=== PATIENT | female | born 1985 | race Caucasian/White ===

== ENCOUNTER → 2016-12-04 | Outpatient (CLI) | payer BC, OTHER ==
[2016-12-04 14:58] LABS: CH 32.5; CHCM 34.7; HCT 32.2 % (34.0-46.0); HDW 2.87; HGB 10.8 gm/dL (11.4-16.0); MCH 31.8 pg (25.0-35.0); MCHC 33.7 g/dL (31.0-37.0); MCV 94.4 fL (80.0-100.0); Mean Platelet Volume 6.5; RBC 3.41 m/uL (3.80-5.40); RDW 13.6 % (11.5-15.5); WBC 14.1 k/uL (3.8-10.6)
--- NOTE | 2016-12-04 14:59 | US ---
EXAMINATION TYPE: US OB anatomy transabd DATE OF EXAM: 12/04/2016 2:20 PM COMPARISON: NONE HISTORY: LGA, no prior US with this TECHNIQUE: EXAM MEASUREMENTS: GESTATIONAL AGE / DATING Physician Established: not established Dates by LMP: (20 weeks/ 1 days) EDC: 04/22/2017 Dates by First Scan: this is first scan Dates by Current Scan: ( weeks/ 3 days) EDC: 04/13/2017 SURVEY IUP: Single PLACENTA: Anterior PREVIA: No previa SANTI: 12.4 cm Normal CERVICAL LENGTH (transabdominal: norm > 3.0cm): 3.6 cm BIOMETRY PRESENTATION: BPD: 5.0 cm 21 weeks / 1 days HC: 19.0 cm 21 weeks / 2 days AC: 15.8 cm 21 weeks / 0 days FL: 3.7 cm 21 weeks / 6 days ESTIMATED WEIGHT IN GRAMS: 414 grams ESTIMATED WEIGHT IN LBS/OZS: 0 lbs. 15 oz. WEIGHT PERCENTAGE BASED ON ESTABLISHED DATE: 96 % HC/AC: 1.2 FL/AC: 23% HEART RATE: 136 bpm RHYTHM: Normal ANATOMY SEEN (within normal limits): * Lateral Vent (< 1 cm)0.7 cm * Cisterna Magna (< 1.1 cm)0.5 cm * Nuchal Fold (< 0.6 cm)0.4 cm * Cerebellum (varies with age)2.2 cm Choroid Plexus (bilateral) Midline Falx Cavus Septi Pellucidi Four Chamber Heart Outflow tracts: LVOT/RVOT Stomach Situs Nose / Lips Diaphragm Kidneys (bilateral) Bladder Cord Insert Three Vessel Cord Longitudinal Spine Transverse Spine Arms (bilateral) Legs (bilateral) IMPRESSION: growth according to LMP dates.
[2016-12-04 15:05] LABS: Glucose 93 mg/dL (74-99); Non-African American GFR(MDRD) >60 (>60 ml/min/1.73 sqM)
[2016-12-04 15:35] LABS: Hepatitis B Surface Ag Index 0.05
[2016-12-04 18:52] LABS: Treponemal Ab Non-Reactive (Non-Reactive)
[2016-12-05 07:42] LABS: HIV-1/HIV-2 Ab Screen NONREAC (NON REAC)
== END | disposition home or self-care (01) ==
LOC: RADUSWWP 13:36
PROVIDERS: ATTEND Obstetrics & Gynecology
DX: O36.62X0 Maternal care for excessive fetal growth, second trimester, not applicable or unspecified (principal); O26.812 Pregnancy related exhaustion and fatigue, second trimester; Z3A.20 20 weeks gestation of pregnancy
CPT/HCPCS: 36415; 76811; 82565; 82947; 85027; 86762; 86777; 86778; 86780; 86850; 86900; 86901; 87340; 87389

== ENCOUNTER → 2017-01-06 | Outpatient (CLI) | payer BC, OTHER ==
[2017-01-06 10:58] LABS: CH 32.6; CHCM 34.2; HCT 34.2 % (34.0-46.0); HDW 3.04; HGB 11.2 gm/dL (11.4-16.0); MCH 31.5 pg (25.0-35.0); MCHC 32.8 g/dL (31.0-37.0); MCV 96.1 fL (80.0-100.0); Mean Platelet Volume 7.7; RBC 3.56 m/uL (3.80-5.40); RDW 13.7 % (11.5-15.5); WBC 14.7 k/uL (3.8-10.6)
== END | disposition home or self-care (01) ==
LOC: LABWHC1 09:34
PROVIDERS: ATTEND Obstetrics & Gynecology
DX: Z34.82 Encounter for supervision of other normal pregnancy, second trimester (principal); Z3A.00 Weeks of gestation of pregnancy not specified
CPT/HCPCS: 36415; 82950; 85027

== ENCOUNTER → 2017-01-13 | Outpatient (CLI) | payer BC, OTHER ==
[2017-01-13 11:45] LABS: Glucose 3 Hour, Gest 128 mg/dL
== END | disposition home or self-care (01) ==
LOC: LABWHC1 07:42
PROVIDERS: ATTEND Obstetrics & Gynecology
DX: O99.810 Abnormal glucose complicating pregnancy (principal); Z3A.00 Weeks of gestation of pregnancy not specified
CPT/HCPCS: 36415; 82951; 82952

== ENCOUNTER 2017-03-30 07:20 | Inpatient (IN) | payer BC, OTHER ==
[2017-03-30] MEDS ORDERED: TERBUTALINE 1 MG/ML VIAL SQ PRN (09:22)
[2017-03-30] MEDS ORDERED: OXYTOCIN 10 UNIT/ML 1 ML VIAL IM PRN (09:22)
[2017-03-30] MEDS ORDERED: LIDOCAINE 1% (PF) 10 MG/ML (30 ML SDV) SQ PRN (09:22)
[2017-03-30] MEDS ORDERED: METHYLERGONOVINE 0.2 MG/ML 1 ML AMP IM PRN (09:22)
[2017-03-30] MEDS ORDERED: CARBOPROST TROMETHAMINE 250 MCG/ML 1 ML AMP IM PRN (09:22)
[2017-03-30] MEDS ORDERED: OXYTOCIN 20 UNITS/1000 ML NS 1,000 ML IV SCH ×2 (09:30→19:00)
[2017-03-30] MEDS: LACTATED RINGERS 1,000 ML IV SCH ×2 (09:40→11:29)
[2017-03-30 10:05] VITALS: BMI 32.4
[2017-03-30 10:16] LABS: Basophils % (A) 0 %; CH 32.1; CHCM 35.3; Eosinophils # (A) 0.1 k/uL (0-0.7); Eosinophils % (A) 1 %; HCT 36.2 % (34.0-46.0); HDW 3.35; HGB 12.3 gm/dL (11.4-16.0); Luc # (Auto) 0.22; Luc % (Auto) 2; Lymphocytes # (A) 2.1 k/uL (1.0-4.8); Lymphocytes % (A) 16 %; MCH 31.3 pg (25.0-35.0); MCHC 34.1 g/dL (31.0-37.0); MCV 91.7 fL (80.0-100.0); Mean Platelet Volume 7.1; Monocytes # (A) 0.6 k/uL (0-1.0); Monocytes % (A) 4 %; Neutrophils # (A) 10.5 k/uL (1.3-7.7); Neutrophils % (A) 78 %; RBC 3.95 m/uL (3.80-5.40); RDW 13.9 % (11.5-15.5); WBC 13.5 k/uL (3.8-10.6); WBC (Perox) 13.83
[2017-03-30] MEDS ORDERED: SODIUM CHLORIDE 0.9% 100 ML BAG ONE (11:11)
[2017-03-30] MEDS ORDERED: fentaNYL (PF) 50 MCG/ML 5 ML AMP ONE (11:11)
[2017-03-30] MEDS ORDERED: BUPIVACAINE (PF) 0.25% 30 ML VIAL ONE (11:11)
[2017-03-30] MEDS ORDERED: BUPIVACAINE (PF) 0.25% 25 ML, fentaNYL (PF) 200 MCG in SODIUM CHLORIDE 0.9% 71 ML EPIDURAL ONE (11:24)
--- NOTE | 2017-03-30 12:23 | P.HPOB ---
History of Present Illness H&P Date: 03/30/17 Chief Complaint: Impression term: Active labor Chantal is a 31-year-old at 37 weeks 2 days gestation who arrives in active labor. She's making cervical change initially that it dilated to 3 and 4 she is now 5 cm 70% effaced -3 station. Artificial rupture membranes was performed and clear fluid is noted. There been some issues with heart tones. Initially while we are observing her there was a deceleration during an extended contraction down into the 80s from baseline of 125. It did resolve within 2 minutes. Falling her epidural there was again a deceleration but also has resolved within 2 minutes of the deceleration. heart tones were otherwise reassuring. We have not started Pitocin the Pitocin augmentation of labor may occur. Again she is doing an epidural for analgesia. Precis course otherwise was generally unremarkable. She does have a history of HSV for which she has been on antiviral. No lesions are noted that are consistent with HSV she has had no prodromal symptoms either. She does have a approximate 1 cm what appears to be ingrown hair/abscess on the mons squeezing it did produce a small amount of beige pus. Pertinent labs do include A+ blood type, Rh antibody negative, rubella nonimmune, hepatitis B surface antigen and HIV were negative. GBS was also negative. On physical exam vital signs are stable she is afebrile. Heart is regular, lungs are clear, extremities without pain. Abdomen is soft gravid uterus. Assessment intrauterine at term. Plan expect spontaneous vaginal delivery. Past Medical History Past Medical History: No Reported History History of Any Multi-Drug Resistant Organisms: None Reported Past Surgical History: Cholecystectomy, Hernia Repair Past Anesthesia/Blood Transfusion Reactions: No Reported Reaction Past Psychological History: Anxiety Smoking Status: Never smoker Past Alcohol Use History: None Reported Past Drug Use History: None Reported - Past Family History Mother Family Medical History: Cancer Additional Family Medical History / Comment(s): colitis Medications and Allergies Home Medications Medication Instructions Recorded Confirmed Type Multivitamin/Iron/Folic Acid 1 each PO DAILY 10/09/15 10/09/15 History [Centrum Complete Multivit Tab] Acyclovir 400 mg PO BID 03/08/17 03/08/17 History Allergies Allergy/AdvReac Type Severity Reaction Status Date / Time No Known Allergies Allergy Verified 03/30/17 07:32 Exam Osteopathic Statement: *. No significant issues noted on an osteopathic structural exam other than those noted in the History and Physical/Consult. - Vital Signs Vital signs: Vital Signs Temp Pulse Resp BP 03/30/17 09:56 96.9 F L 75 16 125/70 03/30/17 09:00 96.9 F L 75 16 125/70 Intake and Output 03/29/17 03/30/17 03/30/17 22:59 06:59 14:59 Other: Weight 85.729 kg Patient Weight 03/31/17 06:59 Weight 85.729 kg Results Result Diagrams: 03/30/17 09:35 Abnormal Lab Results - Last 24 Hours (Table) 03/30/17 Range/Units 09:35 WBC 13.5 H (3.8-10.6) k/uL Neutrophils # 10.5 H (1.3-7.7) k/uL
--- NOTE | 2017-03-30 17:53 | P.PROBDLV ---
Vaginal Delivery Note - . Vaginal Delivery Note: Chantal progressed to complete and pushing with spontaneous vaginal delivery of a viable female over an intact perineum. Falling deliver the head anterior posterior shoulders were delivered with gentle downward upper traction followed by the remainder the baby. Baby was delivered from left occiput anterior position. Once baby was delivered on mouth nares were bulb suctioned baby was then placed on mother's abdomen where the umbilical cord was clamped cut usual fashion. Nursery personnel was present to some care. Placenta was then delivered intact and Pitocin was added to the IV. scores and weight are both pending. However, baby appear stable at this time as does the mother
[2017-03-30] MEDS ORDERED: MEASLES-MUMPS-RUBELLA VACC/PF 12,500 UNIT/0.5 ML VIAL SQ ONE (18:49)
[2017-03-30] MEDS ORDERED: diphenhydrAMINE 25 MG CAP PO PRN (18:49)
[2017-03-30] MEDS ORDERED: diphenhydrAMINE 50 MG CAP PO PRN (18:49)
[2017-03-30] MEDS ORDERED: diphenhydrAMINE 50 MG/ML 1 ML VIAL IVP PRN ×2 (18:49)
[2017-03-30] MEDS ORDERED: SIMETHICONE 80 MG CHEWABLE PO PRN (18:49)
[2017-03-30] MEDS: IBUPROFEN 600 MG TAB PO PRN (19:10)
[2017-03-30] MEDS: SENNOSIDES-DOCUSATE SODIUM 1 EACH TAB PO SCH (19:11)
[2017-03-30] MEDS: ACETAMINOPHEN TAB 325 MG TAB PO PRN (22:44)
[2017-03-31] MEDS: IBUPROFEN 600 MG TAB PO PRN ×4 (02:20→20:47)
[2017-03-31] MEDS: ACETAMINOPHEN TAB 325 MG TAB PO PRN (05:20)
[2017-03-31] MEDS: SENNOSIDES-DOCUSATE SODIUM 1 EACH TAB PO SCH ×2 (09:22→19:28)
[2017-03-31] MEDS ORDERED: Acetaminophen-Codeine 300-30mg TAB PO PRN (11:07)
--- NOTE | 2017-03-31 11:07 | P.PNOBGVD ---
Subjective - Subjective Principal diagnosis: Post day 1 Interval history: Overall patient is doing very well. She is ambulating, voiding and she is tolerating her diet. She does report that with her cramping she is having to throw up every once in a while so we'll add Tylenol 3 to try and decrease some of her pain levels. Otherwise her vital signs are stable and she is afebrile. Heart regular, lungs clear, extremities without pain. Abdomen is soft uterus is firm lochia is reported light. Assessment day 1. Plan continue current care with likely discharged home in a.m. Objective - Latest Vital Signs Latest vital signs: Vital Signs Temp Pulse Resp BP 03/31/17 04:00 98.0 F 64 16 105/58 03/30/17 23:00 98.6 F 64 16 121/71 03/30/17 19:54 97.3 F L 73 16 129/82 03/30/17 19:24 76 16 114/77 03/30/17 18:54 86 16 127/75 03/30/17 18:39 64 16 124/67 03/30/17 18:24 71 16 124/79 03/30/17 18:09 78 16 109/54 03/30/17 17:54 97.2 F L 71 16 117/55 Intake and Output 03/30/17 03/31/17 03/31/17 22:59 06:59 14:59 Other: # Voids 2
[2017-03-31] MEDS: Acetaminophen-Codeine 300-30mg TAB PO PRN ×2 (11:53→16:24)
[2017-04-01 00:06] VITALS: RESP 18
[2017-04-01] MEDS: Acetaminophen-Codeine 300-30mg TAB PO PRN (03:27)
[2017-04-01] MEDS: IBUPROFEN 600 MG TAB PO PRN (06:38)
--- NOTE | 2017-04-01 09:48 | P.DS ---
Providers Date of admission: 03/30/17 09:13 Expected date of discharge: 04/01/17 Attending physician: Gurmeet Plummer Primary care physician: Stated None Hospital Course: Chantal is doing very well day 2. She is ambulating, voiding and she is tolerating her diet. She voices no complaints. Vital signs stable and afebrile. Heart regular, lungs clear, extremities without pain assessment day 2. Plan discharged home follow up with me in 6 weeks. Prescriptions for Tylenol 3 and Motrin are provided and discharge instructions were thoroughly reviewed. Patient Condition at Discharge: Good Plan - Discharge Summary New Discharge Prescriptions: Acetaminophen-Codeine 300-30mg [Tylenol #3] 1 tab PO Q4H PRN #30 tablet PRN Reason: Pain Ibuprofen [Motrin] 600 mg PO Q6HR PRN #30 tab PRN Reason: Pain Discharge Medication List Multivitamin/Iron/Folic Acid [Centrum Complete Multivit Tab] 1 each PO DAILY [History] Acyclovir 400 mg PO BID 03/08/17 [History] Acetaminophen-Codeine 300-30mg [Tylenol #3] 1 tab PO Q4H PRN #30 tablet [Rx] Ibuprofen [Motrin] 600 mg PO Q6HR PRN #30 tab 04/01/17 [Rx] Follow up Appointment(s)/Referral(s): Gurmeet Plummer DO [Doctor of Osteopathic Medicine] - 6 Weeks Activity/Diet/Wound Care/Special Instructions: No heavy lifting, limit stairs and driving, and pelvic rest. If any high temperatures, heavy bleeding, or severe pain call my office
[2017-04-01 10:09] VITALS: BP 121/71; PULSE 67; TEMP 98.4
[2017-04-01] MEDS: SENNOSIDES-DOCUSATE SODIUM 1 EACH TAB PO SCH (10:10)
[2017-04-01] MEDS: ACETAMINOPHEN TAB 325 MG TAB PO PRN (10:43)
[2017-04-01] MEDS ORDERED: MEASLES-MUMPS-RUBELLA VACC/PF 12,500 UNIT/0.5 ML VIAL SQ ONE (11:32)
== END 2017-04-01 12:44 | disposition home or self-care (01) | DRG 775 ==
LOC: FBPOP 07:20 → 4FBP 09:13
PROVIDERS: ADMIT Obstetrics & Gynecology; ATTEND Obstetrics & Gynecology
PROC: 10E0XZZ Delivery of Products of Conception, External Approach (ICD-10-PCS; principal; 2017-03-30)
PROC: 00HU33Z Insertion of Infusion Device into Spinal Canal, Percutaneous Approach (ICD-10-PCS; 2017-03-30)
PROC: 3E0R3CZ (ICD-10-PCS; 2017-03-30)
PROC: 3E0134Z Introduction of Serum, Toxoid and Vaccine into Subcutaneous Tissue, Percutaneous Approach (ICD-10-PCS; 2017-04-01)
DX: O80 Encounter for full-term uncomplicated delivery (principal); Z23 Encounter for immunization; Z37.0 Single live birth; Z3A.37 37 weeks gestation of pregnancy; Z86.59 Personal history of other mental and behavioral disorders; Z90.49 Acquired absence of other specified parts of digestive tract; Z79.899 Other long term (current) drug therapy
CPT/HCPCS: 59025; 84112; 85025; 88307; 90707; 99213

== ENCOUNTER 2017-07-15 08:26 | Day surgery (SDC) | payer BC, OTHER ==
[2017-07-09 13:06] VITALS: BMI 29.5
[~2017-07-15 08:26] MED LIST: BUPIVACAINE (PF) 0.25% 30 ML VIAL SQ ONE; DEXAMETHASONE SOD PHOSPHATE 10 MG/ML 1 ML VIAL IV ONE; LACTATED RINGERS 1,000 ML IV SCH; LIDOCAINE 1% 20 ML VIAL (10MG/ML) FOR IV START INTRADERMA PRN; Pre Op ABX Message 1 EACH MISC MISCELLANE ONE; SCOPOLAMINE 1.5MG/72HR PATCH TRANSDERM ONE
--- NOTE | 2017-07-15 08:45 | P.HPOB ---
History of Present Illness H&P Date: 07/15/17 Chief Complaint: Family planning Patient is a 31-year-old female was completed her family planning and desires permanent sterilization. Risks/benefits/alternatives to laps up tubal occlusion were discussed with patient in detail and all questions were answered for her prior to proceeding to the operating room. On physical exam vital signs are stable and afebrile. Heart regular, lungs clear, extremities without pain. Abdomen soft nontender positive bowel sounds are noted pelvic exams unremarkable. Assessment family planning. Plan laparoscopic tubal occlusion with Filshie clips. Past Medical History Past Medical History: No Reported History Additional Past Medical History / Comment(s): elevated liver enzymes during preg ,genital herpes-not active,insect bites to regine arms History of Any Multi-Drug Resistant Organisms: None Reported Past Surgical History: Cholecystectomy, Hernia Repair Past Anesthesia/Blood Transfusion Reactions: No Reported Reaction Additional Past Anesthesia/Blood Transfusion Reaction / Comment(s): no hx blood transfusion Smoking Status: Never smoker - Past Family History Father Family Medical History: No Reported History Mother Family Medical History: Cancer Additional Family Medical History / Comment(s): colitis Medications and Allergies Home Medications Medication Instructions Recorded Confirmed Type Acyclovir 400 mg PO BID PRN 03/08/17 07/09/17 History Allergies Allergy/AdvReac Type Severity Reaction Status Date / Time No Known Allergies Allergy Verified 07/09/17 12:58 Exam Osteopathic Statement: *. No significant issues noted on an osteopathic structural exam other than those noted in the History and Physical/Consult.
[2017-07-15] MEDS ORDERED: BUPIVACAINE (PF) 0.25% 30 ML VIAL SQ ONE ×3 (08:59→09:38)
[2017-07-15 09:12] VITALS: TEMP 98
[2017-07-15] MEDS ORDERED: KETOROLAC 30 MG/ML 1 ML VIAL ONE (09:13)
[2017-07-15] MEDS ORDERED: GLYCOPYRROLATE 0.2 MG/ML 2 ML VIAL ONE (09:13)
[2017-07-15] MEDS ORDERED: fentaNYL (PF) 50 MCG/ML 2 ML AMP ONE (09:13)
[2017-07-15] MEDS ORDERED: LIDOCAINE 1% INJ 10MG/ML (20 ML MDV) ONE (09:13)
[2017-07-15] MEDS ORDERED: HYDROmorphone (PF) 1 MG/ML ONE (09:13)
[2017-07-15] MEDS ORDERED: SUCCINYLCHOLINE CHLORIDE 100 MG/5 ML SYR IV ONE (09:13)
[2017-07-15] MEDS ORDERED: MIDAZOLAM 2 MG/2 ML VIAL ONE (09:13)
[2017-07-15] MEDS: ONDANSETRON 4 MG/2 ML VIAL IVP ONE ×2 (09:13→10:42)
[2017-07-15] MEDS ORDERED: PROPOFOL 10 MG/ML 20 ML VIAL IV ONE (09:13)
--- NOTE | 2017-07-15 09:46 | P.OP ---
Date of Procedure: 07/15/17 Preoperative Diagnosis: Family planning Postoperative Diagnosis: Same Procedure(s) Performed: Laparoscopic tubal occlusion with Filshie clips Implants: Anesthesia: ANELA Surgeon: Gurmeet Plummer Estimated Blood Loss (ml): 3 Pathology: none sent Condition: stable Disposition: same day Indications for Procedure: Operative Findings: Normal female pathology Description of Procedure: Patient was taken to the operating suite where a general anesthetic was found be adequate. She was prepped and draped in the normal sterile fashion and placed in dorsal lithotomy position. Initially a speculum was inserted into the vagina and the anterior lip of cervix was grasped with an Allis clamp. Uterus was then sounded to 8 cm and a uterine manipulator was inserted without difficulty. Speculum and Allis were removed and red rubber catheter was used to try and bladder.. Wells were then changed and attention was turned to the abdominal portion of the procedure were 2 mL of quarter percent Marcaine was injected periumbilically. Through this injected anesthetic a 5 mm skin incision was made and through this incision under direct visualization with an optical trocar and sleeve the camera was inserted. Once peritoneal placement was assured gas was left fully insufflate the abdomen and patient was placed in steep Trendelenburg position. Once this was accomplished second 8 mm skin incision was then made 3 cm above the pubic symphysis in the midline and through this incision another port and sleeve were inserted under direct visualization. Once this was accomplished uterus was elevated and fallopian tubes were identified. Normal female anatomy was noted. First the right tube than left tube had a physical applied approximately 2 cm from uterine cornu. No bleeding is noted from the mesosalpinx therefore instruments are removed and gas was allowed to expel from the abdomen. 5 deep breaths were provided during this process. Once accomplished ports and camera were removed and 4-0 Vicryl was used to close the incision subcuticularly. The remaining 8 mL of quarter percent Marcaine was then injected around the incisions and instruments removed from vagina. Sponge, lap, needle counts were all correct 2. Patient was then taken to the recovery room in stable and satisfactory condition. Plan - Discharge Summary New Discharge Prescriptions: New Acetaminophen-Codeine 300-30mg [Tylenol #3] 1 tab PO Q4H PRN #30 tablet PRN Reason: Pain Ibuprofen [Motrin] 600 mg PO Q6HR PRN #30 tab PRN Reason: Pain No Action Acyclovir 400 mg PO BID PRN PRN Reason: preventative Discharge Medication List Acyclovir 400 mg PO BID PRN 03/08/17 [History] Acetaminophen-Codeine 300-30mg [Tylenol #3] 1 tab PO Q4H PRN #30 tablet [Rx] Ibuprofen [Motrin] 600 mg PO Q6HR PRN #30 tab 07/15/17 [Rx] Follow up Appointment(s)/Referral(s): Gurmeet Plummer DO [Doctor of Osteopathic Medicine] - 2 Weeks Activity/Diet/Wound Care/Special Instructions: No heavy lifting, limit stairs and driving, and pelvic rest. If any high temperatures, heavy bleeding, or severe pain call my office
[2017-07-15] MEDS: HYDROmorphone 1 MG/ML 1 ML SYRINGE IVP PRN ×2 (10:39→10:51)
[2017-07-15 10:59] VITALS: RESP 18
[2017-07-15 12:09] VITALS: BP 132/67; PULSE 72
== END 2017-07-15 12:44 | disposition home or self-care (01) ==
LOC: OR 08:26
PROVIDERS: ATTEND Obstetrics & Gynecology
DX: Z30.2 Encounter for sterilization (principal); A60.00 Herpesviral infection of urogenital system, unspecified
CPT/HCPCS: 81025; 58671; J2250; J1100; J2405; J2001; J3010; J1885; J1170; J0330; J2704

== ENCOUNTER 2024-06-05 06:50 | Emergency (ER) | payer BC, OTHER ==
--- NOTE | 2024-06-05 07:12 | ED ---
Headache HPI - General Chief Complaint: Headache Stated Complaint: Migraine Time Seen by Provider: 06/05/24 07:02 Source: patient, RN notes reviewed Mode of arrival: ambulatory Limitations: no limitations - History of Present Illness Initial Comments: This is a 38-year-old female who presents to the emergency department for a migraine. Patient reports a history of migraines and states that this started a couple of days ago. She tried taking [id number] Excedrin Migraine and a hemp supplement, but has not had any relief. This is not the worst headache of her life and states that this feels like migraines she has had in the past. However, states that she only gets migraines this severe a couple of times each year. Otherwise she has less intense migraines a few times each month. She has received the migraine cocktail in the emergency department before which she states is typically effective. Not on any prescription abortive or preventative medication. Reports nausea and photosensitivity. Patient's temp was slightly elevated on arrival. She denies any URI symptoms or other complaints. MD Complaint: "migraine" - Related Data Home Medications Medication Instructions Recorded Confirmed Acyclovir 400 mg PO BID PRN 03/08/17 08/17/17 Previous Rx's Medication Instructions Recorded Ketorolac [Toradol] 10 mg PO Q6HR PRN #15 tab 06/05/24 Ondansetron Odt [Zofran Odt] 4 mg PO Q8HR PRN #15 tab 06/05/24 SUMAtriptan succinate 100 mg PO DIRECTED PRN #10 06/05/24 tablet Allergies Allergy/AdvReac Type Severity Reaction Status Date / Time No Known Allergies Allergy Verified 06/05/24 07:01 Review of Systems ROS Statement: Those systems with pertinent positive or pertinent negative responses have been documented in the HPI. ROS Other: All systems not noted in ROS Statement are negative. Past Medical History Past Medical History: No Reported History Additional Past Medical History / Comment(s): elevated liver enzymes during preg,genital herpes-not active,insect bites to regine arms History of Any Multi-Drug Resistant Organisms: None Reported Past Surgical History: Cholecystectomy, Hernia Repair, Tubal Ligation Past Anesthesia/Blood Transfusion Reactions: No Reported Reaction Additional Past Anesthesia/Blood Transfusion Reaction / Comment(s): no hx blood transfusion Past Psychological History: Anxiety Smoking Status: Never smoker Past Alcohol Use History: None Reported Past Drug Use History: None Reported - Past Family History Father Family Medical History: No Reported History Mother Family Medical History: Cancer Additional Family Medical History / Comment(s): colitis General Exam Limitations: no limitations General appearance: alert, in no apparent distress Head exam: Present: atraumatic, normocephalic, normal inspection Eye exam: Present: normal appearance, PERRL, EOMI. Absent: scleral icterus, conjunctival injection, periorbital swelling Neck exam: Present: normal inspection, full ROM. Absent: tenderness, meningismus, lymphadenopathy Respiratory exam: Present: normal lung sounds bilaterally. Absent: respiratory distress, wheezes, rales, rhonchi, stridor Cardiovascular Exam: Present: regular rate, normal rhythm, normal heart sounds. Absent: systolic murmur, diastolic murmur, rubs, gallop, clicks Neurological exam: Present: alert, oriented X3, CN II-XII intact Psychiatric exam: Present: normal affect, normal mood Skin exam: Present: warm, dry, intact, normal color. Absent: rash Course Vital Signs 06/05/24 06/05/24 06/05/24 07:00 08:01 09:18 Temperature 99.9 F H 98.7 F Pulse Rate 79 81 82 Respiratory 18 16 Rate Blood Pressure 141/78 108/64 O2 Sat by Pulse 98 97 Oximetry Medical Decision Making - Medical Decision Making This is a 38 year old female who presents to the emergency department for a headache. Was pt. sent in by a medical professional or institution? @ -No Did you speak to anyone other than the patient for history? @ -No Did you review nursing and triage notes? @ -Yes, and I agree, it is accurate with regards to the patient's symptoms. Were old charts reviewed? @ -No Differential Diagnosis? @ -Differential Headache: Migraine, tension, cluster, carbon monoxide, central venous thrombosis, pension karma temporal arteritis, acute closure glaucoma, intercranial hemorrhage, mastoiditis, sinusitis, head injury, this is not meant to be an all-inclusive list. EKG interpreted by me (3pts min.)? @ -Not obtained X-rays interpreted by me (1pt min.)? @ -Not obtained CT interpreted by me (1pt min.)? @ -Not obtained U/S interpreted by me (1pt. min.)? @ -Not obtained What testing was considered but not performed? (CT, X-rays, U/S, labs)? Why? @ -None What meds were considered but not given? Why? @ -None Did you discuss the management of the patient with other professionals? @ -No Did you reconcile home meds? @ -No Was smoking cessation discussed for >3mins.? @ -No Was critical care preformed (if so, how long)? @ -No Were there social determinants of health that impacted care today? How? (Homelessness, low income, unemployed, alcoholism, drug addiction, transportation, low edu. Level, literacy, decrease access to med. care, care home, rehab)? @ -No Was there de-escalation of care discussed even if they declined? (Discuss DNR or withdrawal of care, Hospice)? @ -No What co-morbidities impacted this encounter? (DM, HTN, Smoking, COPD, CAD, Cancer, CVA, Hep., AIDS, mental health diagnosis, sleep apnea, morbid obesity)? @ -Migraines Was patient admitted / discharged? @ -Discharged. COVID, influenza, and RSV testing negative. Patient's temperature was slightly elevated on arrival. She was 99.9 F on arrival to the emergency department. This was rechecked when she was brought back to the [facility] room at 99.3 F. While the temp was elevated, patient was not considered to be febrile. She denied any URI symptoms or other complaints. States that this felt like a typical severe migraine, which she has had in the past. She was treated with a migraine cocktail consisting of Toradol, Decadron, Reglan, Benadryl, and IV fluids. The headache improved but was still bothersome. She was given an additional 15mg of Toradol and Fioricet. Headache did continue to improve and she was comfortable with discharge home. Prescription for Toradol, Zofran, and sumatriptan provided with dosing instructions reviewed for any additional headaches. Otherwise advised follow-up with her primary care provider. Undiagnosed new problem with uncertain prognosis? @ -None Drug Therapy requiring intensive monitoring for toxicity (Heparin, Nitro, Insulin, Cardizem)? @ -None Were any procedures done? @ -None Diagnosis/symptom? @ -Migraine Acute, or Chronic, or Acute on Chronic? @ -Acute Uncomplicated (without systemic symptoms) or Complicated (systemic symptoms)? @ -Uncomplicated Side effects of treatment? @ -None Exacerbation, Progression, or Severe Exacerbation] @ -Not applicable Poses a threat to life or bodily function? @ -No Return precautions reviewed in depth, the patient is instructed to return to the emergency department with any new, worsening, or concerning symptoms. Patient verbalized understanding. This case was discussed in detail with the attending ED physician, Dr. Otto. Presentation, findings, and treatment plan discussed in detail as well. - Lab Data Lab Results 06/05/24 Range/Units 07:18 Influenza Type A (PCR) Not Detected (Not Detectd) Influenza Type B (PCR) Not Detected (Not Detectd) RSV (PCR) Not Detected (Not Detectd) SARS-CoV-2 (PCR) Not Detected (Not Detectd) Disposition Clinical Impression: Migraine headache Disposition: HOME SELF-CARE Instructions (If sedation given, give patient instructions): Migraine Headache (ED) Additional Instructions: Return to the emergency department with any new, worsening, or concerning symptoms. Take the Toradol with Tylenol as needed for pain relief. If you choose to take the Toradol, do not take any other anti-inflammatories such as ibuprofen, take one or the other. You can take the Zofran up to every 8 hours as needed for nausea and vomiting. If you develop another migraine, take the sumatriptan as soon as the headache starts. You can repeat the dose in 2 hours if the headache persists or returns. Follow up with your primary care provider in 1-2 days. Prescriptions: SUMAtriptan succinate 100 mg PO DIRECTED PRN #10 tablet PRN Reason: Migraine Headache Ketorolac [Toradol] 10 mg PO Q6HR PRN #15 tab PRN Reason: Pain Ondansetron Odt [Zofran Odt] 4 mg PO Q8HR PRN #15 tab PRN Reason: Nausea And Vomiting Is patient prescribed a controlled substance at d/c from ED?: No Referrals: None,Stated [Primary Care Provider] - 1-2 days Time of Disposition: 09:10
[2024-06-05] MEDS: KETOROLAC 15 MG/ML 1 ML VIAL IVP STA ×2 (07:27→08:22)
[2024-06-05] MEDS: diphenhydrAMINE 50 MG/ML 1 ML VIAL IVP STA (07:28)
[2024-06-05] MEDS: METOCLOPRAMIDE 5 MG/ML 2 ML VIAL IVP STA (07:28)
[2024-06-05] MEDS: DEXAMETHASONE SOD PHOSPHATE 10 MG/ML 1 ML VIAL IVP STA (07:28)
[2024-06-05] MEDS: SODIUM CHLORIDE 0.9% 1,000 ML IV STA (07:29)
[2024-06-05] MEDS: BUTALB/APAP/CAFF 50-325-40MG TAB PO STA (08:22)
[2024-06-05 08:32] VITALS: TEMP 98.7
[2024-06-05 09:22] VITALS: BP 108/64; PULSE 82; RESP 16
== END 2024-06-05 09:18 | disposition home or self-care (01) ==
LOC: EC 06:50
DX: G43.909 Migraine, unspecified, not intractable, without status migrainosus (principal); Z11.52 Encounter for screening for COVID-19
CPT/HCPCS: 87636; 99284; 96374; 96375 ×3; 96376; 96361; J1200; J1100; J2765; J1885